=== PATIENT | female | born 1995 | race Caucasian/White ===

== ENCOUNTER 2017-02-03 15:11 | Emergency (ER) | payer BC ==
[~2017-02-03] VITALS: Ht 175.3 cm; Wt 96.0 kg
[2017-02-03 15:14] VITALS: Ht 175.3 cm; Wt 96.0 kg
[2017-02-03] MEDS ORDERED: KETOROLAC 60 MG INJ IM STA (15:38)
--- NOTE | 2017-02-03 16:26 | RADRPT ---
PROCEDURE: XR Chest. CLINICAL INDICATION: chest pain TECHNIQUE: Single frontal view of the chest was obtained COMPARISON: None FINDINGS: The heart and mediastinum are within normal limits. The lungs are clear. There is no pleural effusion or pneumothorax. There is mild dextroscoliosis of the thoracic spine. RPTAT: AA IMPRESSION: No acute disease. Mild dextroscoliosis of the thoracic spine. .Charly Bernardo MD, MD Date Time Electronically viewed and signed by .Charly Bernardo MD, on 02/03/2017 16:25 .S/
--- NOTE | 2017-02-03 17:01 | RADRPT ---
PROCEDURE: XR thoracic Spine. CLINICAL INDICATION: Back pain TECHNIQUE: AP, lateral and swimmer's views of the thoracic spine were obtained. COMPARISON: No prior studies are available for comparison. FINDINGS: There is normal vertebral mineralization. There is mild to moderate dextroscoliosis of the thoracic spine.. No acute fracture or subluxation is seen. The disc spaces are normal in appearance. The posterior elements are unremarkable. The soft tissues appear normal. RPTAT: AA IMPRESSION: Mild to moderate dextroscoliosis. No acute fracture. .Charly Bernardo MD, MD Date Time Electronically viewed and signed by .Charly Bernardo MD, on 02/03/2017 17:01 .S/
[2017-02-03] MEDS ORDERED: NAPR-260 PO (17:07)
--- NOTE | 2017-02-03 17:16 | ERD ---
ER Documentation Chief Complaint Date/Time DATE: 02/03/17 TIME: 17:11 Chief Complaint "WOKE UP WITH R UPPER BACK PAIN 3 DAYS AGO, WORSE WHEN I MOVE ARM" HPI 21-year-old female patient with no significant past medical history presents to the ED complaining of right upper back pain that started 3 days ago when she woke up. States that it is worse when she moves her arm. Denies any trauma. States that she feels like the pain is worse when she breathes in and out. Denies any recent traveling. Denies any immobility. Denies taking any control. Denies any fever, chills, abdominal pain, nausea, vomiting, diarrhea, chest pain, cough, fever, chills. Denies any saddle anesthesia, ROS All systems reviewed and are negative except as per history of present illness. Medications Home Meds Active Scripts Naproxen* (Naprosyn*) 500 Mg Tablet, 500 MG PO BID Y for PAIN AND/OR INFLAMMATION, #30 TAB Prov:ELVIE INIGUEZ PA-C 02/03/17 Allergies Allergies: Coded Allergies: No Known Allergy (Unverified , 02/03/17) PMhx/Soc Medical and Surgical Hx: pt denies Medical Hx, pt denies Surgical Hx Hx Alcohol Use: No Hx Substance Use: No Hx Tobacco Use: No Physical Exam Vitals Vital Signs Date Time Temp Pulse Resp B/P Pulse Ox O2 Delivery O2 Flow Rate FiO2 02/03/17 15:14 98.3 89 18 131/86 99 Physical Exam Const: [id number], well-nourished. In no acute distress. Head: Atraumatic, normocephalic Eyes: Normal Conjunctiva without injection. No purulent discharge. ENT: Normal external ear, nose. Moist oropharynx without tonsillar exudates. Non -erythematous pharynx. Uvula midline. No drooling. No trismus. Neck: No cervical midline tenderness. Full range of motion. No meningismus. No cervical lymphadenopathy. No JVD. Resp: Clear to auscultation bilaterally. No wheezing, rhonchi, rales, or crackles. No accessory muscle use. No retractions. Cardio: Regular rate and rhythm. No murmurs, rubs or gallops. Abd: Soft, nontender, non distended. Normal bowel sounds. No palpable masses. No rebound tenderness. No guarding. Negative McBurney's point. Negative psoas sign. Negative obturator sign. Skin: No petechiae or rashes Back: Slight T12 midline tenderness. Tenderness to palpation of the right part of her upper back. No CVA tenderness. Ext: No cyanosis, or edema. Neur: Awake and alert. Normal gait. Normal coordination. Psych: Normal Mood and Affect Results 24 hrs Current Medications Medications (Trade) Dose Ordered Sig/Jahaira Route PRN Reason Start Time Stop Time Status Last Admin Dose Admin Ketorolac Tromethamine (Toradol) 60 mg ONCE STAT IM 02/03/17 15:38 02/03/17 15:40 DC 02/03/17 15:54 Procedures/MDM This is a 21-year-old female patient with no significant past medical history presents to the ED complaining of right upper back pain. Patient is afebrile and nontoxic-appearing. Patient has normal vital signs. A chest x-ray was ordered to further evaluate patient. This included thoracic spine. PROCEDURE: XR Chest. CLINICAL INDICATION: chest pain TECHNIQUE: Single frontal view of the chest was obtained COMPARISON: None FINDINGS: The heart and mediastinum are within normal limits. The lungs are clear. There is no pleural effusion or pneumothorax. There is mild dextroscoliosis of the thoracic spine. RPTAT: AA IMPRESSION: No acute disease. Mild dextroscoliosis of the thoracic spine. PROCEDURE: XR thoracic Spine. CLINICAL INDICATION: Back pain TECHNIQUE: AP, lateral and swimmer's views of the thoracic spine were obtained. COMPARISON: No prior studies are available for comparison. FINDINGS: There is normal vertebral mineralization. There is mild to moderate dextroscoliosis of the thoracic spine.. No acute fracture or subluxation is seen. The disc spaces are normal in appearance. The posterior elements are unremarkable. The soft tissues appear normal. RPTAT: AA IMPRESSION: Mild to moderate dextroscoliosis. No acute fracture. Patient is ambulating here in the ED without difficulty. Denies saddle anesthesia, numbness or tingling, urine or bowel incontinence, weakness. Low suspicion for cauda equina syndrome, cord compression, nephrolithiasis, aortic aneurysm, aortic dissection, epidural abscess, spinal hematoma, malignancy, pyelonephritis, or other emergent conditions. Discharge medications: Naproxen Follow up with primary care physician in 1-2 days. Instructed patient to return to the ED sooner for any worsening symptoms. Patient's questions were answered. Patient understood and agreed with discharge plan. Patient discharged stable. Departure Diagnosis: Primary Impression: Back pain Back pain location: back pain in unspecified location Chronicity: unspecified Back pain laterality: midline Qualified Code: M54.89 - Midline back pain, unspecified back location, unspecified chronicity Condition: Stable Patient Instructions: Back Pain (Acute Or Chronic) Referrals: [facility] YOU HAVE RECEIVED A MEDICAL SCREENING EXAM AND THE RESULTS INDICATE THAT YOU DO NOT HAVE A CONDITION THAT REQUIRES URGENT TREATMENT IN THE EMERGENCY DEPARTMENT. FURTHER EVALUATION AND TREATMENT OF YOUR CONDITION CAN WAIT UNTIL YOU ARE SEEN IN YOUR DOCTORS OFFICE WITHIN THE NEXT 1-2 DAYS. IT IS YOUR RESPONSIBILITY TO MAKE AN APPOINTMENT FOR FOLOW-UP CARE. IF YOU HAVE A PRIMARY DOCTOR --you should call your primary doctor and schedule an appointment IF YOU DO NOT HAVE A PRIMARY DOCTOR YOU CAN CALL OUR PHYSICIAN REFERRAL HOTLINE AT IF YOU CAN NOT AFFORD TO SEE A PHYSICIAN YOU CAN CHOSE FROM THE FOLLOWING [facility] [address] [facility]. [facility] [address] [facility] [facility] [address] [facility] [facility] [address] [facility] [facility] [address] [facility]. [facility]. [address] [facility]. [facility] YOU HAVE RECEIVED A MEDICAL SCREENING EXAM AND THE RESULTS INDICATE THAT YOU DO NOT HAVE A CONDITION THAT REQUIRES URGENT TREATMENT IN THE EMERGENCY DEPARTMENT. FURTHER EVALUATION AND TREATMENT OF YOUR CONDITION CAN WAIT UNTIL YOU ARE SEEN IN YOUR DOCTORS OFFICE WITHIN THE NEXT 1-2 DAYS. IT IS YOUR RESPONSIBILITY TO MAKE AN APPOINTMENT FOR FOLOW-UP CARE. IF YOU HAVE A PRIMARY DOCTOR --you should call your primary doctor and schedule and appointment IF YOU DO NOT HAVE A PRIMARY DOCTOR YOU CAN CALL OUR PHYSICIAN REFERRAL HOTLINE AT . IF YOU CAN NOT AFFORD TO SEE A PHYSICIAN YOU CAN CHOSE FROM THE FOLLOWING [facility]: [facility] [address] [place] [address] [facility] [address] [place] [address] [facility] WITH [facility] [address] [place] [address] [facility] URGENT CARE/SPECIALTIES Additional Instructions: Call your primary care doctor TOMORROW for an appointment during the next 2-3 days.See the doctor sooner or return here if your condition worsens before your appointment time. ELVIE INIGUEZ PA-C February 03, 2017 17:16
== END 2017-02-03 17:28 | disposition home or self-care (01) ==
LOC: FTE 15:11
DX: M54.89 Other dorsalgia (principal)
CPT/HCPCS: 71010; 72072; J1885; 96372

== ENCOUNTER 2017-02-11 16:22 | Emergency (ER) | payer BC ==
[~2017-02-11] VITALS: Wt 95.5 kg
[~2017-02-11 16:22] MED LIST: NAPR-260 PO
[2017-02-11] MEDS ORDERED: IBUPROFEN 600 MG TAB PO ONE (17:00)
--- NOTE | 2017-02-11 17:25 | RADRPT ---
PROCEDURE: US Lower extremity Venous. CLINICAL INDICATION: Pain and swelling TECHNIQUE: Multiple sonographic images of the left lower extremity deep venous system was obtained utilizing grayscale, color-flow, compressive sonography and doppler imaging with augmentation. The images were reviewed on a PACS workstation. COMPARISON: None. FINDINGS: There is normal compressibility and flow within the left common femoral, deep femoral, superficial f emoral and popliteal veins. Normal respiratory variation and augmentation is seen. There is normal color flow and compressibility of left posterior tibial and peroneal veins IMPRESSION: No sonographic evidence for left lower extremity deep venous thrombosis. RPTAT: HH .Singh Hernández MD, MD Date Time Electronically viewed and signed by .Singh Hernández MD, on 02/11/2017 17:25 .W/
--- NOTE | 2017-02-11 17:35 | RADRPT ---
PROCEDURE: XR Femur. CLINICAL INDICATION: Lower extremity pain. TECHNIQUE: 4 views of the left femur were obtained. COMPARISON: No prior studies are available for comparison. FINDINGS: There is normal mineralization and alignment. There is no evidence of acute fracture or dislocation. Limited evaluation of the joints of the right femur demonstrates no significant abnormality. The so ft tissues are unremarkable. IMPRESSION: 1. Unremarkable left femur x-ray series. RPTAT: [facility] .Huseyin Mullen MD, MD Date Time Electronically viewed and signed by .Huseyin Mullen MD, on 02/11/2017 17:34 .B/
[2017-02-11] MEDS ORDERED: IBUP-1542 PO (17:49)
--- NOTE | 2017-02-11 23:04 | ERD ---
ER Documentation Chief Complaint Date/Time DATE: 02/11/17 TIME: 23:00 Chief Complaint LEFT LEG PAIN X 1 MONTH HPI This is a 21-year-old female presents to the ER with right leg pain over the last month. Patient states that leg pain starts in the lateral side of her thigh and radiates down to her mid calf. Patient describes pain as a nagging aching pain. Pain is intermittent. Patient denies any trauma. Patient states that she is constantly sitting down, and she feels that this causes her pain. She denies any numbness or tingling of her extremity. She denies any calf swelling or redness. Patient denies any fevers or chills. ROS 12 point review of systems was done, all negative except per HPI. Medications Home Meds Active Scripts Ibuprofen* (Motrin*) 600 Mg Tab, 600 MG PO Q6, #30 TAB Prov:DIGNA CORTEZ 02/11/17 Naproxen* (Naprosyn*) 500 Mg Tablet, 500 MG PO BID Y for PAIN AND/OR INFLAMMATION, #30 TAB Prov:ELVIE INIGUEZ PA-C 02/03/17 Allergies Allergies: Coded Allergies: No Known Allergy (Unverified , 02/03/17) PMhx/Soc Medical and Surgical Hx: pt denies Medical Hx, pt denies Surgical Hx Hx Alcohol Use: No Hx Substance Use: No Hx Tobacco Use: No Physical Exam Vitals Vital Signs Date Time Temp Pulse Resp B/P Pulse Ox O2 Delivery O2 Flow Rate FiO2 02/11/17 16:27 98.0 75 18 129/76 99 Physical Exam GENERAL: The patient is well developed and appropriate for usual state of health , in no apparent distress. HEENT: Atraumatic. CHEST: Clear to auscultation bilaterally. There are no rales, wheezes or rhonchi. HEART: Regular rate and rhythm. No murmurs, clicks, rubs or gallops EXTREMITIES: Patient is tender to palpation along the lateral side of her left thigh and lateral calf. There is no redness or swelling. She has full range of motion of the knee with no pain. There are no areas of ecchymosis. +2 pulses. NEURO: Alert and oriented. SKIN: . The skin is warm and dry. Results 24 hrs Current Medications Medications (Trade) Dose Ordered Sig/Jahaira Route PRN Reason Start Time Stop Time Status Last Admin Dose Admin Ibuprofen (Motrin) 600 mg ONCE ONCE PO 02/11/17 17:00 02/11/17 17:01 DC 02/11/17 17:40 Procedures/MDM This is a 21-year-old female presents to the ER complaining of leg pain over the last 2 months. Etiology of leg pain is unknown however suspicion for infectious process is low. Patient is afebrile and well-appearing. Patient is able to ambulate without difficulty and is neurovascularly intact. Suspicion for DVT is low. Suspicion for fracture dislocation is low. I doubt acute compartment syndrome, osteomyelitis, rhabodo, myositis. Patient was sent with ibuprofen. She is to follow-up with her primary care doctor within 1-2 days return to ER sooner if symptoms worsen. My medical decision making shared with the patient she understands and agrees with plan. Departure Diagnosis: Primary Impression: Leg pain Condition: Stable Patient Instructions: Possible Causes of Low Back or Leg Pain Additional Instructions: Call your primary care doctor TOMORROW for an appointment during the next 1-2 days.See the doctor sooner or return here if your condition worsens before your appointment time. DIGNA CORTEZ February 11, 2017 23:04
== END 2017-02-11 18:19 | disposition home or self-care (01) ==
LOC: FTE 16:22
DX: M79.605 Pain in left leg (principal)
CPT/HCPCS: 73550; 93971